=== PATIENT | male | born 1960 | race Caucasian/White ===

== ENCOUNTER → 2023-03-18 11:23 | Outpatient (BNVA) | payer BC, SELFPAY | PROVIDERS: Family Provider Family Medicine; PCP Family Medicine; Visit Provider Family Medicine | DX: Z00.00 Encounter for general adult medical examination without abnormal findings (principal); Z13.6 Encounter for screening for cardiovascular disorders | CPT/HCPCS: 80053; 80061; 83036; G0103 ==

== ENCOUNTER 2023-12-04 06:00 | Outpatient (RCR) | payer BC, SELFPAY | END 2023-12-28 23:59 | disposition home or self-care (01) | LOC: SPT 06:00 | PROVIDERS: Visit Provider Student in an Organized Health Care Education/Training Program | DX: M17.11 Unilateral primary osteoarthritis, right knee (principal) | CPT/HCPCS: 97110; 97112; 97161 ==

== ENCOUNTER 2023-12-29 06:30 | Outpatient (RCR) | payer BC, SELFPAY | END 2024-01-27 23:59 | disposition home or self-care (01) | LOC: SPT 06:30 | PROVIDERS: Visit Provider Student in an Organized Health Care Education/Training Program | DX: Z47.89 Encounter for other orthopedic aftercare (principal) | CPT/HCPCS: 97110; 97112 ==

== ENCOUNTER 2024-01-28 06:30 | Outpatient (RCR) | payer BC, SELFPAY | END 2024-02-27 23:59 | disposition home or self-care (01) | LOC: SPT 06:30 | PROVIDERS: Visit Provider Student in an Organized Health Care Education/Training Program | DX: Z47.89 Encounter for other orthopedic aftercare (principal); M25.561 Pain in right knee | CPT/HCPCS: 97110; 97164 ==

== ENCOUNTER → 2024-03-31 12:19 | Outpatient (BNVA) | payer BC, SELFPAY | PROVIDERS: PCP Family Medicine; Visit Provider Family Medicine | DX: Z00.00 Encounter for general adult medical examination without abnormal findings (principal) | CPT/HCPCS: 80053; 80061; G0103 ==

== ENCOUNTER → 2024-11-09 11:51 | Outpatient (BNVA) | payer MEDICARE, SELFPAY | PROVIDERS: PCP Family Medicine; Visit Provider Family Medicine | DX: Z12.5 Encounter for screening for malignant neoplasm of prostate (principal) | CPT/HCPCS: G0103 ==

== ENCOUNTER 2024-11-17 15:11 | Outpatient (CLI) | payer SELFPAY ==
--- NOTE | 2024-11-17 15:15 | CT_ITS ---
WS: [id number] CT CALCIUM SCORE REASON FOR VISIT: Z00.00 - Encounter for general adult medical examination ...; Family history of heart disease. Coronary artery disease risk assessment COMPARISON: None TECHNIQUE: Noncontrast coronary CT in combination with quantitative analysis performed on a separate workstation were used to determine CACS (Agatston score) TOTAL EXAM DOSE: 91.09 mGy.cm ECG GATING: Prospective SCAN RANGE: Pulmonary artery bifurcation to Inferior aspect of heart COMPLICATIONS: None FINDINGS: Technical Quality/Examination Quality: Good Limitation: None OVERALL SCORES Total calcium score: 268 Total volume score: 216 mm3 Percentile: 50-75th % ARTERY SCORES Left main coronary artery: 0 Left anterior descending artery: 259 Left circumflex artery: 1 Right coronary artery: 8 OTHER FINDINGS: Mediastinum: Large hiatal hernia. Thoracic aorta: As visualized negative. Lungs: As visualized negative. CT/CT heart w calcium score 63132 IMPRESSION: 1. Total calcium score 268 places the patient between the 50th and 75th percen tile for males in this age group. 2. Moderately increased risk for cardiovascular event. Recommend moderate to h igh intensity statin and aspirin regimen.
== END 2024-11-17 15:12 | disposition home or self-care (01) ==
LOC: RAD 15:14
PROVIDERS: PCP Family Medicine; Visit Provider Family Medicine
DX: Z13.6 Encounter for screening for cardiovascular disorders (principal); Z00.00 Encounter for general adult medical examination without abnormal findings; K44.9 Diaphragmatic hernia without obstruction or gangrene; Z82.49 Family history of ischemic heart disease and other diseases of the circulatory system
CPT/HCPCS: 75571

== ENCOUNTER → 2025-01-08 09:06 | Outpatient (BNVA) | payer MEDICARE, SELFPAY | PROVIDERS: PCP Family Medicine; Referring Provider Family Medicine; Visit Provider Internal Medicine Cardiovascular Disease | DX: I25.10 Atherosclerotic heart disease of native coronary artery without angina pectoris (principal); E78.5 Hyperlipidemia, unspecified; R07.9 Chest pain, unspecified; R06.02 Shortness of breath | CPT/HCPCS: 36415; 80061; 83880; 93005; 99204 ==

== ENCOUNTER 2025-02-08 07:47 | Outpatient (CLI) | payer MEDICARE, SELFPAY ==
--- NOTE | 2025-02-08 | ECG_ITS ---
[employer] Test Date: 2025-02-08 Pat Name: Magen Kilpatrick Department: Room: Gender: Male [employer] Worker: : 1960 Requested By: Yusuf Salgado Order Number: [id number] Corbin MD: Presley Trimble M.D. Interpretive Statements EXERCISE MIBI : EXERCISE DATA: The patient was exercised by Sheldon protocol. Baseline heart rate was 79 beats per minute. Baseline blood pressure was 132/91 millimeters of mercury. Maximal predicted heart rate was 155 beats per minute. Maximum heart rate achieved was 141 which was 90% of the maximum predicted heart rate. Maximum blood pressure was 155/74 millimeters of mercury. Total exercise time was 6 minutes. Maximum METs achieved was 7.0. The reason for ending the test was completion of protocol. The patient complained of shortness of breath during the stress test, which then resolved at the end of the test. ELECTROCARDIOGRAM: BASELINE: Showed sinus rhythm, normal axis, no significant ST-T changes at the baseline noted. [] EXERCISE: At the peak exercise level, [] No significant ST-T changes suggestive of ischemia noted. [] RECOVERY: During the recovery period, heart rate dropped appropriately. No significant ST-T changes in the recovery suggestive of ischemia noted. [] CONCLUSION: 1. Exercise capacity is fair 2. Heart rate response was appropriate 3. Blood pressure response was appropriate 4. Symptoms not suggestive of ischemia. 5. Electrocardiogram portion of the stress test was not suggestive of ischemia. 6. Nuclear scan will be documented separately. Electronically Signed On 02-13-2025 20:04:03 CDT by Presley Trimble M.D. [email or web address]
--- NOTE | 2025-02-08 07:45 | USCV_ITS ---
Magen Kilpatrick Age: 64 Gender: M : 1960 Exam Date: 02/08/2025 08:15 Ordering Phys: Yusuf Salgado MD ([email or web address]) Technologist: Exam Location: [facility] [place] Indication: tach sob BP: 125 / 75 HR: 70 Rhythm: Sinus Technical Quality: MEASUREMENTS (Male / Female) Normal Values 2D ECHO LV Diastolic Diameter PLAX 4.6 cm 4.2 - 5.9 / 3.9 - 5.3 cm IVS Diastolic Thickness 1.3 cm 0.6 - 1.0 / 0.6 - 0.9 cm IVS Systolic Thickness 1.9 cm LVPW Diastolic Thickness 1.0 cm 0.6 - 1.0 / 0.6 - 0.9 cm LVPW Systolic Thickness 1.4 cm LVOT Diameter 2.0 cm LV Ejection Fraction 2D Teich 70.5 % LV Ejection Fraction MOD 4C 57.7 % LV Ejection Fraction MOD 2C 66.9 % LV Ejection Fraction 2C AL 68.1 % LA Diameter 3.0 cm RA Systolic Volume 4C AL 34.1 ml RA Systolic Volume 4C MOD 32.3 ml LA Sys Volume AL 56.6 cm cubed LA Sys Volume Index AL 25.3 cm cubed/m squared Aorta at Sinotubular Diameter 3.5 cm IVC Diameter 2.4 cm M-MODE LA Ao Ratio MM 1.2 AV Cusp Separation MM 2.2 cm DOPPLER AV Peak Velocity 138.0 cm/s LVOT Peak Velocity 122.0 cm/s AV Area Cont Eq vti 3.0 cm squared AV Area Cont Eq pk 2.8 cm squared MV Area PHT 3.9 cm squared Mitral E to A Ratio 1.0 TR Peak Velocity 157.0 cm/s TR Peak Gradient 9.9 mmHg TV Peak E Velocity 77.0 cm/s PV Peak Velocity 107.0 cm/s FINDINGS Left Ventricle Normal left ventricular size, systolic function and ejection fraction 66%. Normal left ventricular diastolic function. Mild hypertrophy of the septum. Right Ventricle Normal right ventricular size and systolic function. Right Atrium Normal right atrial size. Left Atrium Normal left atrial size. IA Septum Normal appearance of the interatrial septum. Mitral Valve Normal mitral valve structure. No mitral valve stenosis or regurgitation. Aortic Valve Aortic valve not well visualized. No aortic valve stenosis. Mild aortic valve regurgitation Tricuspid Valve Normal tricuspid valve structure. No tricuspid valve stenosis. Trace regurgitation. Normal pulmonary pressure. Pulmonic Valve Normal pulmonic valve structure. No pulmonic valve stenosis or regurgitation. Pericardium No pericardial effusion. Aorta Normal diameter of the aortic root and ascending thoracic aorta. IVC Normal IVC diameter. CONCLUSIONS Normal left ventricular size, systolic function and ejection fraction of 66 %. Normal right ventricular size and systolic function. Aortic valve not well visualized. No aortic valve stenosis. Mild aortic valve regurgitation Yusuf Salgado MD, FACC (Electronically Signed) Final Date: 13 February 2025 16:25 S
[2025-02-08 08:52] VITALS: BMI 32.5
--- NOTE | 2025-02-08 08:56 | NMCV_ITS ---
NM jayleen perf SPECT r/s* [id number] Magen Kilpatrick Age: 64 Gender: M : 1960 Exam Date: 02/08/2025 09:27 Ordering Phys: Yusuf Salgado MD ([email or web address]) Technologist: MAGO Toribio Exam Location: [facility] Indications: cp STRESS TEST Please see separate stress test report in [facility] for full findings IMAGE PROTOCOL Rest/Stress 1 Exercise Day Radiopharmaceutical Dose (mCi) Administration Site Administered by Rest: Tc-99m 10.5 IV Kellie Tate, LIGHTING DESIGNER Sestamibi Stress:Tc-99m 32.9 IV Kellie Tate, LIGHTING DESIGNER Sestamibi Rest: 08-Feb-2025 60 Discovery 630 Stress: 08-Feb-2025 30 Discovery 630 Radiopharmaceutical was injected at 87% maximum heart rate. Images obtained in supine and prone position. SPECT RESULTS Technical Quality: Good Raw Data Analysis: Normal Image Corrections: No attenuation or motion correction applied Summed Stress Score: 6 Summed Rest Score: 9 Summed Difference Score: 0 PERFUSION FINDINGS Large sized area of fixed perfusion defect is noted in the inferior wall. This is consistent with large sized area of prior infarct. Attenuation artifact can not be ruled out. No significant area of ischemia seen. FUNCTIONAL RESULTS (calculated via Gated SPECT) Stress Image LV EF (%): 65 Stress EDV (mL):126 TID: 0.92 Stress ESV (mL):44 FUNCTIONAL FINDINGS: There is normal left ventricular systolic function. IMPRESSIONS 1. Large sized area of prior infarct seen in the inferior wall. Attenuation artifact can not be ruled out. No evidence of ischemia 2. LV systolic function is normal Presley Trimble MD (Electronically Signed) Final Date: 08 February 2025 12:13 S
[2025-02-08 11:23] VITALS: BP 138/68; PULSE 78
== END 2025-02-08 07:48 | disposition home or self-care (01) ==
LOC: RAD 07:57
PROVIDERS: PCP Family Medicine; Visit Provider Internal Medicine Cardiovascular Disease
DX: I25.10 Atherosclerotic heart disease of native coronary artery without angina pectoris (principal); R06.02 Shortness of breath; R93.1 Abnormal findings on diagnostic imaging of heart and coronary circulation; I51.7 Cardiomegaly; I35.1 Nonrheumatic aortic (valve) insufficiency
CPT/HCPCS: 36415; 78452; 93017; 93306; A9500; J9999